=== PATIENT | male | born 1935 | race Caucasian/White ===

== ENCOUNTER 2017-05-20 10:35 | Inpatient (IN) | payer MEDICARE, OTHER ==
[~2017-05-20] VITALS: Ht 177.8 cm; Wt 74.8 kg
[2017-05-20 10:40] VITALS: BP 191/88
[2017-05-20] MEDS ORDERED: METFORMIN HCL500 MG PO (10:51)
[2017-05-20] MEDS ORDERED: ASPIR 8181 MG PO (10:52)
[2017-05-20] MEDS ORDERED: ZOCOR20 MG PO (10:52)
[2017-05-20] MEDS ORDERED: LISINOPRIL10 MG PO (10:52)
[2017-05-20] MEDS ORDERED: FISH OIL 1,001000 M2 PO (10:53)
[2017-05-20] MEDS ORDERED: APAP650 PO (10:53)
[2017-05-20 11:11] LABS: HEMOGLOBIN 13.6 gm/dL (14.0-18.0); NUCLEATED RBCS 0 /100WBC
[2017-05-20 11:18] LABS: HEMATOCRIT 40.1 % (42.0-52.0); MCH 31.2 pg (26.0-34.0); MCHC 33.8 g/dL (28.0-37.0); MCV 92.3 fL (80.0-100.0); PLATELET COUNT* 206 thou/uL (150-400); RBC 4.35 mil/uL (4.50-6.00); RDW-CV 13.2 % (10.5-14.5); WBC 8.4 thou/uL (4.0-11.0)
[2017-05-20 11:26] LABS: CALCIUM 8.8 mg/dL (8.5-10.1); CREATININE 1.2 mg/dL (0.6-1.3); POTASSIUM 4.6 mmol/L (3.5-5.1)
[2017-05-20 11:32] LABS: ALBUMIN 3.5 g/dL (3.4-5.0); TOTAL BILIRUBIN 0.3 mg/dL (<0.1-1.0)
[2017-05-20 11:42] LABS: ABSOLUTE EOSINOPHILS 0.1 thou/uL (0.0-0.7); ABSOLUTE LYMPHOCYTES 0.8 thou/uL (0.8-5.3); ABSOLUTE MONOCYTES 0.2 thou/uL (0.0-1.2); ABSOLUTE NEUTROPHILS 7.3 thou/uL (1.6-8.1)
[2017-05-20 11:43] LABS: PLATELET ESTIMATE ADEQUATE
--- NOTE | 2017-05-20 12:54 | NUR ---
pt was layed down flat in supine position per pt request.
[2017-05-20 15:06] VITALS: BP 155/74
[2017-05-20 15:30] VITALS: BP 154/83
--- NOTE | 2017-05-20 16:00 | NUR ---
PT ARRIVED ON UNIT APPROX 1520. TRANSPORTED VIA GURNEY AND ER STAFF. PT TRANSFERRED TO BED IN ROOM 318 WITH ASSIST OF NURSING STAFF. PT CALLS OUT IN PAIN WITH MOVEMENT. PT STATES PAIN IS 9/10, CONSTANT, SHARP AND IS RELIEVED WITH REST. STATES PAIN IS GREATER WITH INSPIRATION. PT IS A & O X4 AND ABLE TO COMMUNICATE NEEDS TO STAFF. USING URINAL AT BEDSIDE. BED ALARM IN USE. APPROPRIATE USE OF CALL LIGHT TO ASK FOR ASSIST WHEN OOB. ORIENTED TO ROOM & UNIT FALL PROTOCOL. CALL LIGHT AND NEEDED ITEMS WITHIN REACH OF PT.
[2017-05-20 19:48] VITALS: BP 119/86
--- NOTE | 2017-05-21 06:39 | NUR ---
ASSESSMENT COMPLETE. PT FORGETFUL AND CONFUSED DURING THE NIGHT. PT SLEPT THROUGH THE NIGHT WITHOUT ANY CONCERNS. PT UP TO BSC NEEDED WITH ONE ASSIST. PT REPORTS PAIN WITH MOVEMENT. LIDOCAINE IN PATCH ON RIGHT SIDE OF BACK. PT IS ON ROOM AIR WITH ADEQUATE SATS. PICTURES OF BRUISING ON BACK IN CHART. PT IS SLEEPING AT THIS TIME. SEE ASSESSMENT AND VITALS FOR OTHER DETAILS. CALL LIGHT WITHIN REACH, WILL CONTINUE PLAN OF CARE
[2017-05-21 07:45] VITALS: BP 156/73
--- NOTE | 2017-05-21 17:25 | NUR ---
PATIENT IS ALERT AND ORIENTED TODAY VERY PLEASANT. HAS BEEN AT BEDSIDE MOST OF THE DAY. PATIENT HAS A LOT OF PAIN WITH MOVEMENT. UP TO BEDSIDE COMMODE WITH STAND BY DUE TO PAIN. VITAL SIGNS STABLE ON ROOM AIR. PAIN IS SOMEWHAT CONTROLLED WITH PAIN MEDICATIONS AND LIDOCAINE PATCH IN PLACE. CALL LIGHT IS IN REACH, WILL CONTINUE TO MONITOR.
[2017-05-21 19:50] VITALS: BP 142/64
--- NOTE | 2017-05-22 06:14 | NUR ---
ASSESSMENT COMPLETE. PT MOVED BEDS DUE TO FALL RISK AND PATIENT CLIMBING OUT OF BED. PT SLEPT THROUGH THE NIGHT. PT REPORTS PAIN WITH MOVEMENT, MEDICATION GIVEN NEEDED. PT FORGETFUL AT TIMES OF BEING IN THE HOSPITAL. PT IS ON ROOM AIR WITH ADEQAUTE SATS. PT DENIES N/V. PT IS UP ONE ASSIST TO BSC. IV FLUIDS INFUSING. PT IS FALL RISK, BED ALARM ON. SEE ASSESSMENT AND VITALS FOR OTHER DETAILS. CALL LIGHT WITHIN REACH, WILL CONTINUE PLAN OF CARE
[2017-05-22 09:00] VITALS: BP 139/77
[2017-05-22] MEDS ORDERED: TRAMADOL 50 MG50 MG PO (11:33)
[2017-05-22] MEDS ORDERED: LIDOPATCH1 EACH TOP (11:33)
[2017-05-22] MEDS ORDERED: HYDROCODON-ACE1 EAC7 PO (11:33)
[2017-05-22 11:58] VITALS: BP 139/77
[2017-05-22 12:16] VITALS: BP 139/77
--- NOTE | 2017-05-22 12:20 | NUR ---
PATIENT IS ALERT AND ORIENTED TODAY VERY PLEASANT. VITAL SIGNS STABLE ON ROOM AIR, COMPLAINS OF PAIN WHEN MOVEMENT BUT IS COMFORTABLE WHEN NOT MOVING. AND SON AT BEDSIDE TODAY. PATIENT SHOWERED WITH THE HELP OF . DISCHARGE INSTRUCTIONS GIVEN, QUESTIONS ANSWERED AND HOME MEDICATIONS SENT HOME WITH PATIENT. LEFT VIA WHEECHAIR WITH AND SON TO GO HOME.
[2017-05-22 12:24] VITALS: BP 139/77
== END 2017-05-22 12:25 | disposition home or self-care (01) | DRG 184 ==
LOC: M.ERS 10:35 → M.TBA-ER 13:14 → M.3W 15:15
PROVIDERS: Emergency Medicine Emergency Medical Services; ADMIT Internal Medicine
DX: S22.41XA Multiple fractures of ribs, right side, initial encounter for closed fracture (principal); J98.11 Atelectasis; W18.09XA Striking against other object with subsequent fall, initial encounter; E11.9 Type 2 diabetes mellitus without complications; I10 Essential (primary) hypertension; H35.30 Unspecified macular degeneration; H91.90 Unspecified hearing loss, unspecified ear; Z86.73 Personal history of transient ischemic attack (TIA), and cerebral infarction without residual deficits; Z87.891 Personal history of nicotine dependence; Z87.442 Personal history of urinary calculi; Y93.89 Activity, other specified; Y92.89 Other specified places as the place of occurrence of the external cause; Y99.8 Other external cause status; Z79.82 Long term (current) use of aspirin; Z79.84 Long term (current) use of oral hypoglycemic drugs; Z79.899 Other long term (current) drug therapy